=== PATIENT | female | born 1960 | race Caucasian/White ===

== ENCOUNTER 2018-02-10 21:06 | Emergency (ER) | payer BC ==
[~2018-02-10] VITALS: Ht 162.6 cm; Wt 72.7 kg
[~2018-02-10 21:06] MED LIST: AMLODIPINE5 MG PO; BENICAR40 MG PO; CARVEDILOL25 MG PO; LEVAQUIN 5500 MG/TA1 PO
[2018-02-10 21:57] LABS: EOS # 0.3 (0.04-0.40); EOS % 2.7 % (1.0-5.0); HEMATOCRIT 40.3 % (37.0-47.0); HEMOGLOBIN 13.4 g/dL (12.5-16.0); LYMPH# 1.3 (1.50-4.00); MEAN CELL VOLUME 91 fl (78-100); MEAN CORPUSCULAR HEMOGLOBIN 30 pg (27-31); MEAN CORPUSCULAR HGB CONC 33 g/dL (33-37); MEAN PLATELET VOLUME 10.1 fl (7.4-10.4); MONO # 0.9 (0.20-0.80); NEU # 8.1 (1.40-6.50); PLATELET COUNT 208 K/mm3 (130-400); RED BLOOD COUNT 4.42 M/mm3 (4.10-5.30); RED CELL DISTRIBUTION WIDTH 13.5 % (11.5-14.5); WHITE BLOOD COUNT 10.6 K/mm3 (4.8-10.8)
[2018-02-10] MEDS ORDERED: PREDNISONE20 M1 PO (22:45)
[2018-02-10] MEDS ORDERED: DOXYCYCLINE HY100 M5 PO (22:45)
[2018-02-10 23:03] VITALS: BP 140/80
== END 2018-02-10 23:03 | disposition home or self-care (01) ==
LOC: ED 21:06
PROVIDERS: Family Medicine
DX: J45.909 Unspecified asthma, uncomplicated (principal); I10 Essential (primary) hypertension

== ENCOUNTER → 2022-11-15 | Outpatient (CLI) | payer BC ==
[~2022-11-15] MED LIST changes: +DOXYCYCLINE HY100 M5 PO; +PREDNISONE20 M1 PO
[2022-11-15 22:22] LABS: FOLATE (FOLIC ACID) 5.7 ng/mL (2.0-20.0)
[2022-11-16 13:36] LABS: LYME DISEASE EIA Negative (Negative)
== END ==
LOC: LAB 11:32
PROVIDERS: Psychiatry & Neurology Neurology
DX: E55.9 Vitamin D deficiency, unspecified (principal); E53.1 Pyridoxine deficiency; E53.8 Deficiency of other specified B group vitamins

== ENCOUNTER 2024-07-20 14:49 | Emergency (ER) | payer BC ==
[~2024-07-20] VITALS: Ht 162.6 cm; Wt 75.9 kg
[2024-07-20] MEDS ORDERED: FLUTICASON0.05 MG/Ac NS (15:02)
[2024-07-20] MEDS ORDERED: OLMESARTAN MEDO40 MG PO (15:02)
[2024-07-20] MEDS ORDERED: Ondansetron 4 MG/2 ML VIAL IV ONE (15:15)
[2024-07-20 15:31] LABS: BASO # 0.03 K/mm3 (0.02-0.10); EOS # 0.16 K/mm3 (0.04-0.40); EOS % 2.4 % (1.0-5.0); HEMATOCRIT 40.4 % (37.0-47.0); HEMOGLOBIN 13.2 g/dL (12.5-16.0); LYMPH# 1.29 K/mm3 (1.50-4.00); MEAN CELL VOLUME 92 fl (78-100); MEAN CORPUSCULAR HEMOGLOBIN 30 pg (27-31); MEAN CORPUSCULAR HGB CONC 33 g/dL (33-37); MEAN PLATELET VOLUME 10.3 fl (7.4-10.4); MONO # 0.42 K/mm3 (0.20-0.80); NEU # 4.65 K/mm3 (1.40-6.50); PLATELET COUNT 212 K/mm3 (130-400); RED CELL DISTRIBUTION WIDTH 12.7 % (11.5-14.5); WHITE BLOOD COUNT 6.6 K/mm3 (4.8-10.8)
[2024-07-20 15:38] LABS: SODIUM 145 mmol/L (136-145)
[2024-07-20 15:39] LABS: ALBUMIN 4.3 g/dL (3.4-4.8); CALCIUM 9.3 mg/dL (8.3-10.5)
[2024-07-20 15:42] LABS: CARBON DIOXIDE 23 mmol/L (23-31); GLUCOSE 118 mg/dL (65-105); TOTAL BILIRUBIN 0.5 mg/dL (0.2-1.2)
[2024-07-20 15:46] LABS: AST-SGOT 16 U/L (5-34)
[2024-07-20 15:49] LABS: ALT/SGPT 10 U/L (0-55)
[2024-07-20 15:57] LABS: TROPONIN-I < 0.030 ng/mL (0.00-0.033)
[2024-07-20] MEDS ORDERED: Meclizine 12.5 MG TAB PO ONE (16:00)
[2024-07-20 16:09] VITALS: BP 152/87
== END 2024-07-20 16:16 | disposition home or self-care (01) ==
LOC: ED 14:49
PROVIDERS: Family Medicine
DX: I44.0 Atrioventricular block, first degree (principal); E87.6 Hypokalemia
CPT/HCPCS: J2405; J7120